=== PATIENT | male | born 1930 | race Caucasian/White ===

== ENCOUNTER → 2019-04-23 | Outpatient (CLI) | payer MEDICARE ==
--- NOTE | 2019-04-23 14:11 | REP ---
LUMBOSACRAL SPINE SERIES: Six views of the lumbosacral spine performed. There is no compression fracture. There is normal lumbar lordosis. No spondylolysis is seen. There is mild to moderate diffuse spurring. There is slight disc space narrowing with subchondral sclerosis at L4-5 and L5-S1. There is sclerosis and spurring at the posterior facets at L4-5 and L5-S1. Posterior elements are intact. There is mild curvature toward the left. Vascular calcifications are noted. IMPRESSION: Diffuse degenerative changes without evidence of compression fracture. Electronically Signed by Steve Oviedo MD 04/25/2019 10:17 A
== END ==
LOC: M WUC 08:54
PROVIDERS: ATTEND Physician Assistant
DX: M51.36 Other intervertebral disc degeneration, lumbar region (principal); M51.37 Other intervertebral disc degeneration, lumbosacral region; M25.78 Osteophyte, vertebrae

== ENCOUNTER → 2019-12-25 | Outpatient (CLI) | payer MEDICARE ==
--- NOTE | 2019-12-25 12:04 | REP ---
PA and lateral chest: Comparison is 02/23/2011. The lung hidalgo are mildly hyperinflated but otherwise clear. The cardiac size is normal. The herbert, mediastinum, skeletal structures are unremarkable and unchanged. Impression: Mild hyperinflation. Otherwise, negative PA and lateral chest. Electronically Signed by Steve Villafana MD 12/25/2019 11:56 A
== END ==
LOC: M CARPUL 09:55
PROVIDERS: ATTEND Family Medicine
DX: R01.1 Cardiac murmur, unspecified (principal); R05 Cough; M79.89 Other specified soft tissue disorders; R91.8 Other nonspecific abnormal finding of lung field

== ENCOUNTER 2020-01-18 07:46 | Inpatient (IN) | payer MEDICARE ==
[~2020-01-18] VITALS: Ht 172.7 cm; Wt 97.3 kg
[2020-01-18] MEDS ORDERED: ALBU8.5H INH (08:01)
[2020-01-18] MEDS ORDERED: LOSA25TA14 PO (08:01)
[2020-01-18] MEDS ORDERED: ASPI81TA85 PO (08:01)
[2020-01-18] MEDS ORDERED: FLOM0.4C39 PO (08:03)
[2020-01-18 09:06] LABS: BASO % 0.2 % (0.0-1.0); EOS # 0.1 10^3/uL (0.0-0.5); EOS % 0.9 % (0.0-3.0); HEMOGLOBIN 15.4 g/dl (13.5-17.5); LYMPH # 0.6 10^3/uL (1.5-5.0); LYMPH % 7.1 % (24.0-44.0); MEAN CORPUSCULAR HEMOGLOBIN 32.8 pg (27.0-33.0); MEAN CORPUSCULAR HGB CONC 33.5 g/dl (32.0-36.5); MEAN CORPUSCULAR VOLUME 98.1 fl (80.0-96.0); MONO # 1.2 10^3/uL (0.0-0.8); MONO % 14.1 % (0.0-5.0); NEUTROPHILS # 6.6 10^3/uL (1.5-8.5); NEUTROPHILS % 77.4 % (36.0-66.0); PLATELET COUNT, AUTOMATED 188 10^3/uL (150-450); RED BLOOD COUNT 4.69 10^6/uL (4.30-6.10); WHITE BLOOD COUNT 8.6 10^3/uL (4.0-10.0)
[2020-01-18 09:39] LABS: ALBUMIN 3.5 GM/DL (3.2-5.2); BILIRUBIN,DIRECT 0.2 MG/DL (0.0-0.2); CALCIUM LEVEL 9.2 MG/DL (8.8-10.2); CK-MB VALUE MASS 2.8 NG/ML (<3.6); CREATININE FOR GFR 1.52 MG/DL (0.70-1.30); GLOMERULAR FILTRATION RATE 46.3 (>35); MB/CK RELATIVE INDEX 3.64 (< OR =4); POTASSIUM SERUM 4.2 MEQ/L (3.5-5.1); TOTAL PROTEIN 7.5 GM/DL (6.4-8.2); TROPONIN I 0.03 NG/ML (< 0.10)
--- NOTE | 2020-01-18 10:46 | REP ---
CHEST, SINGLE VIEW: Single view of the chest is performed and compared to a prior study of 12/25/2019. There is cardiomegaly. There may be some mild streaky atelectasis or infiltrate in the left lung base. Right lung appears clear. There is calcification and tortuosity of the thoracic aorta. Mediastinal silhouette otherwise appears unremarkable. IMPRESSION: Cardiomegaly. Possible mild streaky atelectasis/infiltrate left lung base. Electronically Signed by Steve Oviedo MD 01/18/2020 12:36 P
--- NOTE | 2020-01-18 10:47 | REP ---
KUB ABDOMEN AND PELVIS: Portable KUB film of abdomen and pelvis is performed. There are moderately dilated small bowel loops throughout the upper abdomen. Colon is not dilated. Mild air is seen in portions of the colon. There are degenerative changes of the spine. IMPRESSION: Multiple moderately dilated small bowel loops in the abdomen raises suspicion for small bowel obstruction or ileus. Electronically Signed by Steve Oviedo MD 01/18/2020 12:36 P
[2020-01-18] MEDS ORDERED: cefTRIAXone SOD 1 GM in D5W MINI-BAG PLUS 50 ML IV SCH (11:15)
[2020-01-18] MEDS ORDERED: AZITHROMYCIN INJ 500 MG, VIAL MATE ADAPTER 1 EACH in D5W 250 ML IV SCH (11:15)
[2020-01-18] MEDS ORDERED: NS 1,000 ML IV SCH (11:30)
[2020-01-18] MEDS: NS 1,000 ML IV SCH ×2 (12:20→21:09)
[2020-01-18] MEDS ORDERED: ALBUTEROL 90 MCG/ACT 8GM HFA INHALER INH PRN (12:45)
--- NOTE | 2020-01-18 12:46 | HPEPDOC ---
General Date of Admission Jan 18, 2020 at 12:02 Date of Service: Jan 18, 2020 Chief Complaint The patient is a 89-year-old male admitted with a reason for visit of Small Bowel Obstruction. Source: Patient Exam Limitations: No limitations History of Present Illness 89 year old male presents with N/V/D and abdominal pain. Symptoms started yesterday with nausea and bilious vomiting, associated with abdominal distention/bloating. States has been passing gas. Presents to the ED for evaluation. VSS, abdominal film with SBO vs ileus. Consult placed to surgery controls design engineer in ED, plan for admission, NPO/IVF. Patient states he has also had a cough for the past 6 weeks. 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 Respiratory panel negative, Covid-19 ordered in ED. Home Medications Scheduled Aspirin (Aspir 81) 81 Mg Tablet.dr, 81 MG PO DAILY, (Reported) Azithromycin (Azithromycin) 500 Mg Tablet, 1 TAB PO DAILY Losartan Potassium (Losartan Potassium) 25 Mg Tablet, 25 MG PO DAILY, (Reported) Tamsulosin HCl (Flomax) 0.4 Mg Capsule, 0.4 MG PO DAILY, (Reported) Scheduled PRN Albuterol Sulfate (Albuterol Sulfate Hfa) 8.5 Gm Hfa.aer.ad, 2 PUFF INH Q4H PRN for SOB/WHEEZING, (Reported) Allergies Coded Allergies: No Known Allergies (Verified Allergy, Unknown, 01/18/20) Past Medical History Medical History HTN A-FIB/CHADSVASC A-FIB History Current/History of A-Fib/PAF?: No Review of Systems Constitutional: Denies: Chills, Fever, Night Sweats Eyes: Denies: Pain, Vision change ENT: Denies: Head Aches, Ear Pain, Dysphagia Skin: Denies: Rash, Lesions, Breakdown Pulmonary: Denies: Dyspnea, Cough Cardiovascular: Denies: Chest Pain, Palpitations, Orthopnea, Paroxysmal Noc. Dyspnea, Lt Headedness Gastrointestinal: Reports: Nausea, Vomiting, Abdominal Pain; Denies: Diarrhea Genitourinary: Denies: Dysuria, Frequency, Incontinence, Retention Hematologic: Denies: Bruising, Bleeding Excessively Musculoskeletal: Denies: Neck Pain, Back Pain, Joint Pain, Muscle Pain, Spasms Neurological: Denies: Weakness, Numbness, Change in speech, Confusion Psych: Reports: Mood Normal; Denies: Depression, Memory Issues Physical Examination Abdomen Exam: Positive: BS Hypoactive, Tenderness Vital Signs Vital Signs Date Time Temp Pulse Resp B/P (MAP) Pulse Ox O2 Delivery O2 Flow Rate FiO2 01/18/20 08:16 01/18/20 07:48 96.8 86 16 94 Room Air Laboratory Data Labs 24H Laboratory Tests 2 01/18/20 08:48: Immature Granulocyte % (Auto) 0.3, Neutrophils (%) (Auto) 77.4H, Lymphocytes (%) (Auto) 7.1L, Monocytes (%) (Auto) 14.1H, Eosinophils (%) (Auto) 0.9, Basophils (%) (Auto) 0.2, Neutrophils # (Auto) 6.6, Lymphocytes # (Auto) 0.6L, Monocytes # (Auto) 1.2H, Eosinophils # (Auto) 0.1, Basophils # (Auto) 0.0, Nucleated Red Blood Cells % (auto) 0.0, Urine Color NGOZI, Urine Appearance HAZY, Urine pH 5.0, Urine Specific [place] 1.025, Urine Protein 1+H, Urine Glucose (UA) NEGATIVE, Urine Ketones NEGATIVE, Urine Blood NEGATIVE, Urine Nitrite NEGATIVE, Urine Bilirubin NEGATIVE, Urine Urobilinogen 0.2, Urine Leukocyte Esterase NEGATIVE, Urine WBC (Auto) 1, Urine RBC (Auto) 2, Urine Hyaline Casts (Auto) 0, Urine Bacteria (Auto) NEGATIVE, Urine Squamous Epithelial Cells 0, Urine Mucus (Auto) SMALL, Urine Sperm (Auto) , Anion Gap 8, Glomerular Filtration Rate 46.3, Calcium Level 9.2, Total Bilirubin 1.0, Direct Bilirubin 0.2, Aspartate Amino Transf (AST/SGOT) 17, Alanine Aminotransferase (ALT/SGPT) 20, Alkaline Phosphatase 66, Total Creatine Kinase 77, Creatine Kinase MB 2.8, Creatine Kinas e MB Relative Index 3.64, Troponin I 0.03, QR-Mdx-U-Type Natriuretic Peptide 489H, Total Protein 7.5, Albumin 3.5, Albumin/Globulin Ratio 0.88L, Lipase 73 CBC/BMP Laboratory Tests 01/18/20 08:48 Microbiology Microbiology 01/18/20 Respiratory Virus Panel (PCR) (JANEEN) - Final, Complete Assessment/Plan 1. SBO/ileus - admit to med/surg. - consult to surgery. - NPO, IVF NS. - pain control prn, antiemetics prn. 2. SOL/?CKD - no prior for comparison. - hold losartan for now, avoid nephrotoxic agents. - IVF NS, monitor SCr. 3. HTN - losartan held seconday #2. - monitor. 4. LLL PNA - rocephin/zithromax. - blood/sputum cultures. 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 - contact/droplet precautions. 5. DVT ppx - lovenox. Plan / VTE VTE Prophylaxis Ordered?: Yes ADIA ADAM MD Jan 18, 2020 12:46
[2020-01-18] MEDS ORDERED: ONDANSETRON 4MG/2ML VIAL (J2405) IV PRN (13:00)
[2020-01-18 13:56] VITALS: BP 142/90
[2020-01-18] MEDS: TAMSULOSIN 0.4 MG CAP PO SCH (14:16)
[2020-01-18] MEDS: ASPIRIN 81 MG ENTERIC TAB PO SCH (14:16)
[2020-01-18 21:00] VITALS: BP 125/67
[2020-01-19 05:47] VITALS: BP 134/72
[2020-01-19 06:00] VITALS: BP 134/72
[2020-01-19 07:22] LABS: ALT/SGPT 20 U/L (12-78); BILIRUBIN,TOTAL 0.7 MG/DL (0.2-1.0); BLOOD UREA NITROGEN 30 MG/DL (7-18); CALCIUM LEVEL 8.1 MG/DL (8.8-10.2); CARBON DIOXIDE LEVEL 28 MEQ/L (21-32); CHLORIDE LEVEL 111 MEQ/L (98-107); CREATININE FOR GFR 1.18 MG/DL (0.70-1.30); GLOMERULAR FILTRATION RATE > 60.0 (>35); GLUCOSE, FASTING 104 MG/DL (70-100); SODIUM LEVEL 143 MEQ/L (136-145); TOTAL PROTEIN 6.5 GM/DL (6.4-8.2)
[2020-01-19] MEDS: NS 1,000 ML IV SCH ×2 (07:23→18:30)
[2020-01-19] MEDS ORDERED: LOSARTAN 25 MG TAB PO SCH (09:00)
--- NOTE | 2020-01-19 09:09 | IPNPDOC ---
Subjective Date Seen The patient was seen on 01/19/20. Subjective Chief Complaint/HPI Seen and examined at bedside, awake and alert, states bloating/distention has improved, diarrhea with some formed stool yesterday evening, none since but passing flatus. General: Reports: Normal Appetite; Denies: Chills, Night Sweats, Fatigue, Malaise Constitutional: Denies: Chills, Fever, Night Sweats Eyes: Denies: Pain, Vision change ENT: Denies: Head Aches, Ear Pain, Dysphagia Skin: Denies: Rash, Lesions, Breakdown Pulmonary: Denies: Dyspnea, Cough Cardiovascular: Denies: Chest Pain, Palpitations, Orthopnea, Paroxysmal Noc. Dyspnea, Lt Headedness Gastrointestinal: Reports: Abdominal Pain; Denies: Nausea, Vomiting, Diarrhea, Constipation Genitourinary: Denies: Dysuria, Frequency, Incontinence, Retention Hematologic: Denies: Bruising, Bleeding Excessively Musculoskeletal: Denies: Neck Pain, Back Pain, Joint Pain, Muscle Pain, Spasms Neurological: Denies: Weakness, Numbness, Change in speech, Confusion Psych: Reports: Mood Normal; Denies: Depression, Memory Issues Objective Physical Examination General Exam: Positive: Alert, No Acute Distress Eye Exam: Positive: PERRLA, Conjunctiva & lids normal, EOMI; Negative: Sclera icteric ENT Exam: Positive: Atraumatic, Mucous membr. moist/pink, Pharynx Normal Neck Exam: Positive: Supple; Negative: JVD, thyromegaly Chest Exam: Positive: Clear to auscultation, Normal air movement Heart Exam: Positive: Rate Normal, Regular Rhythm, Normal S1, Normal S2; Negative: Murmurs, Rubs Telemetry: Positive: No significant arrhythmia Abdomen Exam: Positive: BS Hypoactive, Tenderness (mild tenderness b/l LQ) Male Exam: Positive: Normal Genital Exam Extremity Exam: Positive: Normal pulses; Negative: Clubbing, Cyanosis, Edema Skin Exam: Positive: Nl turgor and temperature; Negative: Rash, Breakdown Neuro Exam: Positive: Normal Gait, Normal Speech, Cranial Nerves 3-12 NL, Reflexes 2+ Psych Exam: Positive: Mental status NL, Mood NL, Oriented x 3 Assessment /Plan Assessment 1. SBO/ileus - admit to med/surg. - consult to surgery. - NPO, IVF NS. - pain control prn, antiemetics prn. - 01/18: diarrhea yesterday evening, no BM today, passing gas, denies n/v, will continue bowel regimen, repeat KUB. 2. SOL - resolved. - losartan on hold, monitor SCr. 3. HTN - losartan held seconday #2. - monitor. 4. LLL PNA - rocephin/zithromax. - blood/sputum cultures. 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 - contact/droplet precautions. 5. DVT ppx - lovenox. Plan/VTE VTE Prophylaxis Ordered?: Yes VS, I&O, 24H, Fishbone Vital Signs/I&O Vital Signs Date Time Temp Pulse Resp B/P (MAP) Pulse Ox O2 Delivery O2 Flow Rate FiO2 01/19/20 06:00 97.9 82 20 134/72 (92) 95 Room Air I&O- Last 24 Hours up to 6 AM 01/19/20 06:00 Intake Total 1595 ml Output Total 0 ml Balance 1595 ml Laboratory Data 24H LABS Laboratory Tests 2 01/19/20 06:35: Anion Gap 4L, Glomerular Filtration Rate > 60.0, Calcium Level 8.1L, Total Bilirubin 0.7, Aspartate Amino Transf (AST/SGOT) 22, Alanine Aminotransferase (ALT/SGPT) 20, Alkaline Phosphatase 55, Total Protein 6.5, Albumin 3.0L, Albumin/Globulin Ratio 0.86L CBC/BMP Laboratory Tests 01/19/20 06:35 Microbiology Microbiology 01/18/20 Coronavirus COVID-19 PCR (JANEEN), Received Pending 01/18/20 Respiratory Virus Panel (PCR) (JANEEN) - Final, Complete ADIA ADAM MD Jan 19, 2020 09:09
[2020-01-19] MEDS ORDERED: MOM 30ML SUSPENSION UDC PO PRN (09:15)
[2020-01-19] MEDS: SENOKOT S TAB PO SCH ×2 (11:06→22:00)
[2020-01-19] MEDS: TAMSULOSIN 0.4 MG CAP PO SCH (11:06)
[2020-01-19] MEDS: cefTRIAXone SOD 1 GM in D5W MINI-BAG PLUS 50 ML IV SCH (11:06)
[2020-01-19] MEDS: ASPIRIN 81 MG ENTERIC TAB PO SCH (11:06)
--- NOTE | 2020-01-19 12:15 | REP ---
KUB ABDOMEN AND PELVIS: KUB film of abdomen and pelvis is performed and compared to a prior study of 01/18/2020. There are again moderately dilated small bowel loops in the upper abdomen. Caliber has mildly decreased, with improvement since the prior study. There is mild scattered air and fecal material throughout the colon. Diffuse vascular calcifications are noted. IMPRESSION: Mildly decreased caliber of moderately dilated small bowel loops in the abdomen. Electronically Signed by Steve Oviedo MD 01/19/2020 12:23 P
[2020-01-19] MEDS: AZITHROMYCIN INJ 500 MG, VIAL MATE ADAPTER 1 EACH in D5W 250 ML IV SCH (12:47)
[2020-01-19 14:00] VITALS: BP 136/74
[2020-01-19] MEDS ORDERED: HYDROCORTISONE 1% CREAM 30 GM TOP SCH (15:15)
[2020-01-19] MEDS ORDERED: HYDROCORTISONE 1% CREAM 30 GM TOP ONE (16:00)
[2020-01-19 22:00] VITALS: BP 131/72
[2020-01-19] MEDS ORDERED: RAMELTEON 8 MG TAB (ROZEREM) PO PRN (22:15)
[2020-01-19] MEDS ORDERED: ACETAMINOPHEN 650MG ER TAB (TYLENOL ARTHRITIS) PO PRN (22:15)
[2020-01-20 06:00] VITALS: BP 138/76
[2020-01-20] MEDS: NS 1,000 ML IV SCH ×2 (06:16→14:30)
[2020-01-20 06:18] LABS: BASO % 0.4 % (0.0-1.0); EOS # 0.6 10^3/uL (0.0-0.5); EOS % 7.9 % (0.0-3.0); HEMATOCRIT 40.9 % (42.0-52.0); LYMPH # 1.6 10^3/uL (1.5-5.0); MEAN CORPUSCULAR HGB CONC 32.5 g/dl (32.0-36.5); MEAN CORPUSCULAR VOLUME 101.5 fl (80.0-96.0); MONO # 0.7 10^3/uL (0.0-0.8); MONO % 10.4 % (0.0-5.0); NEUTROPHILS # 4.2 10^3/uL (1.5-8.5); PLATELET COUNT, AUTOMATED 145 10^3/uL (150-450); RED BLOOD COUNT 4.03 10^6/uL (4.30-6.10); WHITE BLOOD COUNT 7.1 10^3/uL (4.0-10.0)
[2020-01-20 06:27] LABS: HEMOGLOBIN 13.3 g/dl (13.5-17.5)
[2020-01-20 06:31] LABS: BLOOD UREA NITROGEN 22 MG/DL (7-18); CALCIUM LEVEL 8.1 MG/DL (8.8-10.2); CARBON DIOXIDE LEVEL 22 MEQ/L (21-32); CHLORIDE LEVEL 113 MEQ/L (98-107); CREATININE FOR GFR 0.98 MG/DL (0.70-1.30); GLOMERULAR FILTRATION RATE > 60.0 (>35); GLUCOSE, FASTING 89 MG/DL (70-100); POTASSIUM SERUM 4.4 MEQ/L (3.5-5.1); SODIUM LEVEL 144 MEQ/L (136-145)
[2020-01-20] MEDS: SENOKOT S TAB PO SCH (09:45)
[2020-01-20] MEDS: ASPIRIN 81 MG ENTERIC TAB PO SCH (09:45)
[2020-01-20] MEDS: TAMSULOSIN 0.4 MG CAP PO SCH (09:45)
[2020-01-20] MEDS: cefTRIAXone SOD 1 GM in D5W MINI-BAG PLUS 50 ML IV SCH (11:07)
[2020-01-20] MEDS: AZITHROMYCIN INJ 500 MG, VIAL MATE ADAPTER 1 EACH in D5W 250 ML IV SCH (12:51)
[2020-01-20 14:30] VITALS: BP 133/66
[2020-01-20] MEDS ORDERED: AZIT500T5 PO (15:59)
--- NOTE | 2020-01-20 16:05 | DS.PDOC ---
Discharge Summary General Date of Admission Jan 18, 2020 at 12:02 Date of Discharge 01/18/2020 Discharge Summary PROCEDURES PERFORMED DURING STAY: [None]. ADMITTING DIAGNOSES: 1. SBO/ileus 2. CAP DISCHARGE DIAGNOSES: 1. SBO/ileus 2. CAP COMPLICATIONS/CHIEF COMPLAINT: Small Bowel Obstruction. HISTORY OF PRESENT ILLNESS: Please refer to admission H&P for detailed HPI. HOSPITAL COURSE: Patient was admitted to the hospital and treated for the following conditions: 1. SBO/ileus - NPO, IVF NS. - pain control prn, antiemetics prn. - patients diet was advanced to full liquids and then to low fat. Patient tolerated both with no nausea/vomiting. Has been passing flatus, had a bowel movement on 01/18 x 2. - stable for discharge home, advised to continue with low fat, high fiber diet. 2. SOL - resolved. 3. HTN - continue losartan. 4. LLL PNA - rocephin/zithromax. - blood/sputum cultures negative. 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 - will be discharged on PO zithromax, advised patient to continue self- quarantine until Covid testing returns. DISCHARGE MEDICATIONS: Please see below. ALLERGIES: Please see below. PHYSICAL EXAMINATION ON DISCHARGE: VITAL SIGNS: Please see below. GENERAL: awake, alert, NAD HEENT: NCAT, anicteric sclera, PERRLA/EOMI NECK: supple, no JVD, no masses/thyromegaly CARDIOVASCULAR EXAMINATION: NS1S2, regular, no M/R/G RESPIRATORY EXAMINATION: CTA b/l, no wheezes/rales/rhonchi ABDOMINAL EXAMINATION: NT/ND, positive bowel sounds x 4 EXTREMITIES: no cyanosis, clubbing, edema SKIN: warm, no rashes NEUROLOGICAL EXAMINATION: AAO x 3, no focal motor/sensory deficits PSYCHIATRIC EXAMINATION: calm, cooperative, normal affect LABORATORY DATA: Please see below. ACTIVITY: [As tolerated]. DIET: low fat, high fiber DISPOSITION: home DISCHARGE INSTRUCTIONS: 1. Please follow up with PCP in 2-3 weeks ITEMS TO FOLLOWUP ON ON OUTPATIENT: 1. Covid-19 testing DISCHARGE CONDITION: [Stable]. TIME SPENT ON DISCHARGE: Greater than [30] minutes. Vital Signs/I&Os Vital Signs Date Time Temp Pulse Resp B/P (MAP) Pulse Ox O2 Delivery O2 Flow Rate FiO2 01/20/20 14:30 97.9 75 18 133/66 (88) 96 Room Air I&O- Last 24 Hours up to 6 AM 01/20/20 06:00 Intake Total 2355 ml Output Total 0 ml Balance 2355 ml Laboratory Data Labs 24H Laboratory Tests 2 01/20/20 06:01: Immature Granulocyte % (Auto) 0.3, Neutrophils (%) (Auto) 59.0, Lymphocytes (%) (Auto) 22.0L, Monocytes (%) (Auto) 10.4H, Eosinophils (%) (Auto) 7.9H, Basophils (%) (Auto) 0.4, Neutrophils # (Auto) 4.2, Lymphocytes # (Auto) 1.6, Monocytes # (Auto) 0.7, Eosinophils # (Auto) 0.6H, Basophils # (Auto) 0.0, Nucleated Red Blood Cells % (auto) 0.0, Anion Gap 9, Glomerular Filtration Rate > 60.0, Calcium Level 8.1L CBC/BMP Laboratory Tests 01/20/20 06:01 Microbiology Microbiology 01/19/20 Blood Culture - Preliminary, Resulted No growth after 24 hours . All specim... 01/19/20 Blood Culture - Preliminary, Resulted No growth after 24 hours . All specim... 01/18/20 Coronavirus COVID-19 PCR (JANEEN), Received Pending 01/18/20 Respiratory Virus Panel (PCR) (JANEEN) - Final, Complete Discharge Medications Scheduled Aspirin (Aspir 81) 81 Mg Tablet.dr, 81 MG PO DAILY, (Reported) Azithromycin (Azithromycin) 500 Mg Tablet, 1 TAB PO DAILY Losartan Potassium (Losartan Potassium) 25 Mg Tablet, 25 MG PO DAILY, (Reported) Tamsulosin HCl (Flomax) 0.4 Mg Capsule, 0.4 MG PO DAILY, (Reported) Scheduled PRN Albuterol Sulfate (Albuterol Sulfate Hfa) 8.5 Gm Hfa.aer.ad, 2 PUFF INH Q4H PRN for SOB/WHEEZING, (Reported) Allergies Coded Allergies: No Known Allergies (Verified Allergy, Unknown, 01/18/20) ADIA ADAM MD Jan 20, 2020 16:05
== END 2020-01-20 17:14 | disposition home or self-care (01) | DRG 388 ==
LOC: M ED 07:46 → M ED INP 12:02 → ENRESERV 12:14 → M MSPAV 13:57
PROVIDERS: ADMIT Internal Medicine; ATTEND Internal Medicine
DX: K56.609 Unspecified intestinal obstruction, unspecified as to partial versus complete obstruction (principal); J18.9 Pneumonia, unspecified organism; N17.9 Acute kidney failure, unspecified; I10 Essential (primary) hypertension; Z79.82 Long term (current) use of aspirin; Z79.899 Other long term (current) drug therapy

== ENCOUNTER → 2021-01-11 | Outpatient (CLI) | payer MEDICARE ==
[~2021-01-11] MED LIST: ALBU8.5H INH; ASPI81TA86 PO; AZIT500T5 PO; FLOM0.4C39 PO; LOSA25TA14 PO
--- NOTE | 2021-01-11 12:57 | REP ---
INDICATION: R22.2 SWEELING IN CHEST; R22.2 SWELLING IN CHEST. Left breast swelling for 2-3 months. COMPARISON: No comparison breast imaging. TECHNIQUE: Bilateral CC and MLO) view(s) were attempted. There is not sufficient breast tissue on the right to display mammographically. Magnified focal spot-compression views of the left breast are obtained. Targeted retroareolar bilateral sonography is carried out.. FINDINGS: There is a subareolar pattern of fibroglandular tissue on the left suggestive of gynecomastia. No microcalcification or worrisome skin changes appreciated. No adenopathy seen. Sonographic Bilateral subareolar sonography is carried out. In the right breast there is a small amount of hypoechoic tissue beneath the nipple consistent with minimal gynecomastia. This area measures approximately 8 mm. On the left, there is similar hypoechoic tissue consistent with gynecomastia. This area measures up to 20 mm in greatest diameter and is more prominent corresponding with mammographic findings. No suspicious sonographic features. IMPRESSION: BI-RADS category 2 benign findings. 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 Clinical follow-up is advised. This mammogram was interpreted with the aid of an FDA-approved computer-aided detection system. The patient states he not had a clinical breast exam in over a year. The patient letter being requested is male letter M 2. RECOMMENDATION: Clinical follow-up. Asymmetric gynecomastia pattern.. <Electronically signed by Jesus Moyer > 01/11/21 [id number]
== END ==
LOC: M WHC 09:25
PROVIDERS: ATTEND Family Medicine
DX: N62 Hypertrophy of breast (principal)
CPT/HCPCS: 76642; 77066; G0279